=== PATIENT | male | born 1995 | race Caucasian/White ===

== ENCOUNTER 2017-11-03 13:25 | Emergency (ER) | payer OTHER ==
[~2017-11-03] VITALS: Ht 180.3 cm; Wt 79.5 kg
[2017-11-03 13:30] VITALS: BP 134/78; PULSE 59; TEMP 98.3
[2017-11-03] MEDS ORDERED: CEPHALEXIN500 M1 PO (14:14)
== END 2017-11-03 15:01 | disposition home or self-care (01) ==
LOC: COL.ER 13:25
DX: S61.412A Laceration without foreign body of left hand, initial encounter (principal); X58.XXXA Exposure to other specified factors, initial encounter